=== PATIENT | male | born 1965 | race Caucasian/White ===

== ENCOUNTER → 2017-10-02 | Outpatient (CLI) | payer OTHER ==
--- NOTE | 2017-10-02 18:21 | Diagnostic Imaging Report ---
TECHNIQUE: Magnetic resonance imaging of the LEFT ANKLE was performed WITHOUT injected contrast. COMPARISON: None available. HISTORY: Left ankle pain, fall FINDINGS: LIGAMENTS: Medial Complex: Scarring of the deltoid ligament. Lateral Complex: Inferior tibiofibular ligaments intact. Anterior talofibular ligament intact. Attenuation of the calcaneofibular ligament. TENDONS: Medial: Intact Lateral: Intact Anterior: Intact Achilles: Intact BONES: Subacute nondisplaced fracture of the posterior malleolus of the talus with surrounding edema. JOINTS: Cartilage: Partial-thickness cartilage loss of the ankle joint. Other: Small ankle effusion. SOFT TISSUES: Soft tissue edema. IMPRESSION: Subacute nondisplaced posterior malleolus fracture. Signed by: Dr. Nathaniel Arvizu M.D. on 10/02/2017 6:18 PM
== END ==
LOC: MRI 15:15
PROVIDERS: ATTEND Family Medicine
DX: S93.492D Sprain of other ligament of left ankle, subsequent encounter (principal)